=== PATIENT | male | born 1985 | race Caucasian/White ===

== ENCOUNTER 2019-02-19 02:37 | Emergency (ER) | payer OTHER ==
[~2019-02-19] VITALS: Ht 175.3 cm; Wt 74.8 kg
[2019-02-19 02:39] VITALS: BP 110/64
--- NOTE | 2019-02-19 02:51 | NUR ---
PT AMBULATES TO ROOM FROM TRIAGE WITH STEADY GAIT.
[2019-02-19] MEDS ORDERED: IBUPROFEN 800 MG TABLET PO STA (03:08)
[2019-02-19] MEDS ORDERED: IBUPROFEN 800 MG TABLET ONE (03:08)
--- NOTE | 2019-02-19 03:14 | NUR ---
PT URINE COLLECTED AND TUBED TO LAB AT THIS TIME.
[2019-02-19 03:21] LABS: MICROSCOPIC NOT IND
--- NOTE | 2019-02-19 03:28 | NUR ---
PT TO US VIA [employer] AT THIS TIME.
[2019-02-19 03:29] LABS: CULTURE INDICATED? NO
--- NOTE | 2019-02-19 04:45 | NUR ---
PT SLEEPING IN [facility] AT THIS TIME; ISABEL. CALL LIGHT IS WITHIN REACH OF THE PT.
[2019-02-19] MEDS ORDERED: AZITHROMYCIN 500 MG TABLET ONE (05:39)
[2019-02-19] MEDS ORDERED: CEFTRIAXONE 1,000 MG ONE (05:39)
[2019-02-19] MEDS ORDERED: CIPROFLOXACIN 500 MG TABLET ONE (05:39)
--- NOTE | 2019-02-19 05:47 | NUR ---
PT MEDICATED PER MAY. PT PROVIDED PRESCRIPTION AND D/C SUMMARY AND VERBALIZES UNDERSTANDING OF HOME CARE AND F/U PLAN. PT DENIES ANY OTHER NEEDS PERTAINING TO THIS VISIT. PT AMBULATES TO REGISTRATION DESK WITH STEADY GAIT FOR D/C HOME.
[2019-02-19] MEDS ORDERED: CEFTRIAXONE 1,000 MG IM ONE (06:00)
[2019-02-19] MEDS ORDERED: CIPROFLOXACIN 500 MG TABLET PO ONE (06:00)
[2019-02-19] MEDS ORDERED: AZITHROMYCIN 500 MG TABLET PO ONE (06:00)
== END 2019-02-19 05:50 | disposition home or self-care (01) ==
LOC: ED 05:40
DX: N45.1 Epididymitis (principal)
CPT/HCPCS: 76870; 81003; 99284